=== PATIENT | female | born 1940 | race African-American/Black ===

== ENCOUNTER → 2017-07-02 | Outpatient (CLI) | payer MEDICARE, MEDICAID ==
[~2017-07-02] MED LIST: CALCIUM CARBONATE; DROSPIRENONE; DUO-KAPS1 CAP PO; FLEXERIL5 MG PO; HCTZ12.5TAB PO; IRON DROPS; LIDODERM PATCH TP; LORTAB 2.5/5001 TAB PO; LORTAB 5/500 501 TAB PO; LORTAB ELIX0.5 MG/ML PO; METHOCARBAMOL500 MG PO; NORCO PO; PERCOCET 5/321 UDTAB PO; PREDNISONE10 MG PO; REMERON 15M15 MG/TAB PO; REMERON SOLTAB15 MG PO; TYLENOL 325MG325 MG PO; TYLENOL 500MG500 MG PO; VALTREX PO; XARELTO10 MG PO; [UNRECOGNIZED DRUG - REMARK]
== END ==
LOC: MC.RAD 11:05
DX: Z12.31 Encounter for screening mammogram for malignant neoplasm of breast (principal)

== ENCOUNTER → 2017-10-29 | Outpatient (CLI) | payer MEDICARE, MEDICAID ==
[2017-10-29 16:42] LABS: BASO % 0.6 % (0.0-2.0); EOS # 0.1 (0.0-0.7); EOS % 0.8 % (0-4.0); GRAN % 47.8 % (42.2-75.2); HEMOGLOBIN 13.1 g/dl (12.5-16.0); LYMPH # 2.8 (1.2-3.4); LYMPH % 43.5 % (20.0-51.0); MEAN CELL VOLUME 92 fl (80.0-100.0); MEAN CORPUSCULAR HEMOGLOBIN 30 pg (27.0-31.0); MEAN CORPUSCULAR HGB CONC 33 g/dl (33.0-37.0); MEAN PLATELET VOLUME 10.4 fl (7.4-10.4); MONO # 0.5 (0.1-0.6); MONO % 7.1 % (1.7-9.3); PLATELET COUNT 284 K/mm3 (130-400); RED BLOOD COUNT 4.35 M/mm3 (4.10-5.30); WHITE BLOOD COUNT 6.3 K/mm3 (4.8-10.8)
[2017-10-29 16:55] LABS: ADJUSTED CALCIUM 9.2 mg/dL (8.4-10.2); ALBUMIN 4.5 gm/dL (3.5-5.0); BILIRUBIN,TOTAL 0.5 mg/dL (0.0-1.0); CALCIUM 9.6 mg/dL (8.4-10.2); CREATININE, serum 0.89 mg/dL (0.52-1.25); TOTAL PROTEIN 7.7 gm/dL (6.4-8.2)
[2017-10-29 17:02] LABS: PRE ALBUMIN 25.2 mg/dL (17.6-36.0)
[2017-10-29 17:25] LABS: TSH w REFLEX 0.957 uIU/mL (0.465-4.680)
== END ==
LOC: COL.LAB 09:59
PROVIDERS: Family Medicine
DX: R63.0 Anorexia (principal); R53.83 Other fatigue; R63.4 Abnormal weight loss

== ENCOUNTER 2017-11-11 12:12 | Observation (INO) | payer MEDICARE, MEDICAID ==
[~2017-11-11] VITALS: Ht 162.6 cm; Wt 45.3 kg
[2017-11-11] MEDS ORDERED: REMERON SOLTAB15 MG PO (12:21)
[2017-11-11 13:12] VITALS: BP 147/91; PULSE 62
[2017-11-11 13:46] LABS: BASO % 0.2 % (0.0-2.0); EOS % 0.8 % (0-4.0); GRAN # 2.5 (1.4-6.5); GRAN % 53.2 % (42.2-75.2); HEMATOCRIT 38.4 % (37.0-47.0); HEMOGLOBIN 12.6 g/dl (12.5-16.0); LYMPH # 1.8 (1.2-3.4); LYMPH % 37.6 % (20.0-51.0); MEAN CELL VOLUME 92 fl (80.0-100.0); MEAN CORPUSCULAR HEMOGLOBIN 30 pg (27.0-31.0); MEAN CORPUSCULAR HGB CONC 33 g/dl (33.0-37.0); MEAN PLATELET VOLUME 9.5 fl (7.4-10.4); MONO # 0.4 (0.1-0.6); MONO % 7.8 % (1.7-9.3); PLATELET COUNT 273 K/mm3 (130-400); RED BLOOD COUNT 4.18 M/mm3 (4.10-5.30); WHITE BLOOD COUNT 4.8 K/mm3 (4.8-10.8)
[2017-11-11 13:57] LABS: ADJUSTED CALCIUM 9.1 mg/dL (8.4-10.2); ALANINE AMINOTRANSFERASE 26 U/L (9-52); ALBUMIN 4.3 gm/dL (3.5-5.0); ALKALINE PHOSPHATASE 53 U/L (50-136); ANION GAP 8 mmol/L (7-16); BILIRUBIN,TOTAL 0.5 mg/dL (0.0-1.0); BLOOD UREA NITROGEN 12 mg/dL (7-17); CALCIUM 9.3 mg/dL (8.4-10.2); CARBON DIOXIDE 25 mmol/L (22-30); CHLORIDE 107 mmol/L (98-107); CREATININE, serum 0.78 mg/dL (0.52-1.25); GLUCOSE 90 mg/dL (74-106); POTASSIUM 3.8 mmol/L (3.4-5.0); SODIUM 141 mmol/L (137-145); TOTAL PROTEIN 7.3 gm/dL (6.4-8.2)
[2017-11-11 13:58] LABS: C-REACTIVE PROTEIN < 0.5 mg/dL (0.0-0.9)
[2017-11-11 14:06] LABS: TROPONIN-I < 0.012 ng/mL (0.000-0.034)
[2017-11-11 17:35] LABS: MAGNESIUM 1.8 mg/dL (1.6-2.3)
[2017-11-11 18:07] LABS: TSH w REFLEX 0.56 uIU/mL (0.465-4.680)
[2017-11-11 18:26] VITALS: BP 148/86; PULSE 56; TEMP 97.8
[2017-11-11 19:31] VITALS: BP 138/80; PULSE 51; TEMP 97.8
[2017-11-11 23:51] VITALS: BP 120/70; PULSE 51; TEMP 97.4
[2017-11-12 04:16] VITALS: BP 133/79; PULSE 58; TEMP 97.4
[2017-11-12 08:52] VITALS: BP 140/80; PULSE 57; TEMP 98.6
[2017-11-12 11:28] VITALS: BP 138/68; PULSE 57; TEMP 97.9
[2017-11-12] MEDS ORDERED: FLOXIN OTIC DROP5 ML OU (13:51)
== END 2017-11-12 14:20 | disposition home or self-care (01) ==
LOC: COL.ER 12:12 → MEDICAL 16:00
PROVIDERS: Emergency Medicine; Nurse Practitioner Family
DX: R42 Dizziness and giddiness (principal); R11.2 Nausea with vomiting, unspecified; H53.9 Unspecified visual disturbance; M19.90 Unspecified osteoarthritis, unspecified site; F32.9 Major depressive disorder, single episode, unspecified; F17.210 Nicotine dependence, cigarettes, uncomplicated; Z90.710 Acquired absence of both cervix and uterus; Z90.49 Acquired absence of other specified parts of digestive tract; Z83.3 Family history of diabetes mellitus
CPT/HCPCS: G0378; G8978-GP; G8979-GP; J2060; J2405; J7030

== ENCOUNTER → 2018-05-06 | Outpatient (CLI) | payer MEDICARE, MEDICAID ==
[~2018-05-06] MED LIST changes: +FLOXIN OTIC DROP5 ML OU
== END ==
LOC: COL.LAB 11:18
DX: S31.109A Unspecified open wound of abdominal wall, unspecified quadrant without penetration into peritoneal cavity, initial encounter (principal)

== ENCOUNTER → 2018-09-03 | Outpatient (CLI) | payer MEDICARE, MEDICAID ==
[2018-09-03 10:32] LABS: BASO % 0.6 % (0.0-2.0); EOS # 0.1 (0.0-0.7); GRAN # 2.3 (1.4-6.5); GRAN % 46.4 % (42.2-75.2); HEMATOCRIT 40.5 % (37.0-47.0); HEMOGLOBIN 13.4 g/dl (12.5-16.0); LYMPH # 2.1 (1.2-3.4); LYMPH % 41.9 % (20.0-51.0); MEAN CELL VOLUME 89 fl (80.0-100.0); MEAN CORPUSCULAR HEMOGLOBIN 30 pg (27.0-31.0); MEAN CORPUSCULAR HGB CONC 33 g/dl (33.0-37.0); MEAN PLATELET VOLUME 9.4 fl (7.4-10.4); MONO # 0.4 (0.1-0.6); MONO % 8.9 % (1.7-9.3); PLATELET COUNT 276 K/mm3 (130-400); RED BLOOD COUNT 4.54 M/mm3 (4.10-5.30); REDCELL DISTRIBUTION WIDTH-CV 15.5 % (11.5-14.5)
[2018-09-03 11:08] LABS: ERYTHROCYTE SEDIMENTATION RATE 14 mm/hr (0-30)
[2018-09-03 23:33] LABS: RHEUMATOID FACTOR-SCREEN <15 IU/mL (0-29)
== END ==
LOC: COL.LAB 09:40
PROVIDERS: Family Medicine
DX: M17.11 Unilateral primary osteoarthritis, right knee (principal); M11.261 Other chondrocalcinosis, right knee

== ENCOUNTER 2019-05-08 13:28 | Emergency (ER) | payer MEDICARE, MEDICAID ==
[~2019-05-08] VITALS: Ht 152.4 cm; Wt 47.7 kg
[2019-05-08 13:35] VITALS: TEMP 97.7
[2019-05-08 13:58] LABS: BASO % 0.4 % (0.0-2.0); EOS # 0.2 (0.0-0.7); EOS % 2.6 % (0-4.0); GRAN # 2.5 (1.4-6.5); GRAN % 34.9 % (42.2-75.2); HEMOGLOBIN 11.9 g/dl (12.5-16.0); LYMPH # 3.7 (1.2-3.4); LYMPH % 52.3 % (20.0-51.0); MEAN CELL VOLUME 92 fl (80.0-100.0); MEAN CORPUSCULAR HEMOGLOBIN 30 pg (27.0-31.0); MEAN CORPUSCULAR HGB CONC 32 g/dl (33.0-37.0); MONO # 0.7 (0.1-0.6); MONO % 9.7 % (1.7-9.3); PLATELET COUNT 345 K/mm3 (130-400); RED BLOOD COUNT 4.01 M/mm3 (4.10-5.30); REDCELL DISTRIBUTION WIDTH-CV 14.9 % (11.5-14.5)
[2019-05-08 13:59] LABS: ALANINE AMINOTRANSFERASE < 6 U/L (9-52); ALKALINE PHOSPHATASE 58 U/L (50-136); ANION GAP 12 mmol/L (7-16); AST,SGOT 33 U/L (15-37); BILIRUBIN,TOTAL 0.2 mg/dL (0.0-1.0); BLOOD UREA NITROGEN 11 mg/dL (7-17); CALCIUM 9.2 mg/dL (8.4-10.2); CARBON DIOXIDE 26 mmol/L (22-30); CHLORIDE 106 mmol/L (98-107); CREATININE, serum 0.78 (0.52-1.25); GLUCOSE 94 mg/dL (74-106); POTASSIUM 3.3 mmol/L (3.4-5.0); SODIUM 144 mmol/L (137-145); TOTAL PROTEIN 7.5 gm/dL (6.4-8.2)
[2019-05-08 14:02] LABS: HEMATOCRIT 36.8 % (37.0-47.0)
[2019-05-08 14:10] LABS: TROPONIN-I < 0.012 ng/mL (0.000-0.035)
[2019-05-08 15:53] LABS: COLLECTION METHOD CLEAN CATCH
[2019-05-08 16:05] LABS: MUCOUS Present /lpf; PH 5 (5-8); URINE APPEARANCE Hazy; URINE BACTERIA None Seen /hpf; URINE BILIRUBIN Negative (NEGATIVE); URINE BLOOD Negative (NEGATIVE); URINE COLOR Yellow; URINE GLUCOSE Negative (NEGATIVE); URINE KETONE Negative (NEGATIVE); URINE LEUKOCYTE ESTERASE 1+ (NEGATIVE); URINE NITRATE Negative (NEGATIVE); URINE PROTEIN(semi-quant) Negative (NEGATIVE); URINE UROBILINOGEN Negative (NEGATIVE)
[2019-05-08] MEDS ORDERED: MACROBID 1100 MG/CAP PO (16:32)
[2019-05-08 16:40] VITALS: BP 122/80; PULSE 78
== END 2019-05-08 16:44 | disposition home or self-care (01) ==
LOC: COL.ER 13:28
PROVIDERS: Emergency Medicine
DX: N39.0 Urinary tract infection, site not specified (principal); I10 Essential (primary) hypertension; R55 Syncope and collapse
CPT/HCPCS: J7030

== ENCOUNTER → 2019-12-28 | Emergency (ER) | payer MEDICARE, MEDICAID ==
[~2019-12-28] VITALS: Ht 162.6 cm; Wt 44.5 kg
[~2019-12-28] MED LIST changes: +CLEOCIN HCL300 MG PO; +MACROBID 1100 MG/CAP PO; +NORCO 325 MG-51 TAB PO; +NORVASC2.5 MG PO; +REMERON30 MG PO; +ULTRAM 50MG TAB50 MG PO
[2019-12-28 08:44] VITALS: BP 162/100; PULSE 83; TEMP 98.9
== END ==
LOC: COL.ER 08:32
DX: K04.7 Periapical abscess without sinus (principal); I10 Essential (primary) hypertension; F17.210 Nicotine dependence, cigarettes, uncomplicated
CPT/HCPCS: J1885

== ENCOUNTER 2020-04-10 14:30 | Emergency (ER) | payer MEDICARE, MEDICAID ==
[~2020-04-10] VITALS: Ht 160 cm; Wt 49.5 kg
[2020-04-10 14:37] VITALS: TEMP 98.4
[2020-04-10 15:17] LABS: BASO % 0.4 % (0.0-2.0); EOS # 0.1 (0.0-0.7); EOS % 0.9 % (0-4.0); GRAN # 4.4 (1.4-6.5); GRAN % 64.6 % (42.2-75.2); HEMOGLOBIN 11.5 g/dl (12.5-16.0); LYMPH # 1.8 (1.2-3.4); MEAN CELL VOLUME 92 fl (80.0-100.0); MEAN CORPUSCULAR HEMOGLOBIN 30 pg (27.0-31.0); MEAN CORPUSCULAR HGB CONC 32 g/dl (33.0-37.0); MEAN PLATELET VOLUME 9.9 fl (7.4-10.4); MONO # 0.5 (0.1-0.6); MONO % 7.8 % (1.7-9.3); PLATELET COUNT 264 K/mm3 (130-400); REDCELL DISTRIBUTION WIDTH-CV 15.3 % (11.5-14.5)
[2020-04-10 15:18] LABS: HEMATOCRIT 35.8 % (37.0-47.0)
[2020-04-10 15:57] LABS: ALANINE AMINOTRANSFERASE 19 U/L (4-34); ALBUMIN 4.2 gm/dL (3.5-5.0); ALKALINE PHOSPHATASE 59 U/L (50-136); ANION GAP 7 mmol/L (7-16); AST,SGOT 30 U/L (15-37); BILIRUBIN,TOTAL 0.4 mg/dL (0.0-1.0); BLOOD UREA NITROGEN 15 mg/dL (7-17); CALCIUM 9.4 mg/dL (8.4-10.2); CARBON DIOXIDE 25 mmol/L (22-30); CHLORIDE 106 mmol/L (98-107); CREATININE, serum 0.83 (0.52-1.25); GLUCOSE 89 mg/dL (74-106); SODIUM 138 mmol/L (137-145); TOTAL PROTEIN 7.5 gm/dL (6.4-8.2)
[2020-04-10 16:02] LABS: C-REACTIVE PROTEIN < 0.5 mg/dL (0.0-0.9)
[2020-04-10 16:11] LABS: TROPONIN-I < 0.012 ng/mL (0.000-0.035)
[2020-04-10] MEDS ORDERED: CLEOCIN HC150 MG/CAP PO (16:45)
[2020-04-10] MEDS ORDERED: LIPITOR 10MG10 MG PO (16:46)
[2020-04-10] MEDS ORDERED: VOLTAREN-XR100 MG PO (16:47)
[2020-04-10 17:08] LABS: COLLECTION METHOD CLEAN CATCH
[2020-04-10 17:20] VITALS: BP 118/71; PULSE 65
[2020-04-10 17:40] LABS: PH 6 (5-8); URINE APPEARANCE Clear; URINE COLOR Yellow; URINE PROTEIN(semi-quant) Negative (NEGATIVE)
[2020-04-10 17:41] LABS: MUCOUS Present /lpf; SQUAMOUS EPITHELIAL 0-2 /hpf; URINE BILIRUBIN Negative (NEGATIVE); URINE BLOOD Negative (NEGATIVE); URINE GLUCOSE Negative (NEGATIVE); URINE KETONE Negative (NEGATIVE); URINE LEUKOCYTE ESTERASE Negative (NEGATIVE); URINE NITRATE Negative (NEGATIVE); URINE UROBILINOGEN Negative (NEGATIVE)
[2020-04-10 17:42] LABS: URINE BACTERIA None Seen /hpf
== END 2020-04-10 17:33 | disposition home or self-care (01) ==
LOC: COL.ER 14:30
PROVIDERS: Family Medicine
DX: R55 Syncope and collapse (principal); E86.0 Dehydration; I10 Essential (primary) hypertension
CPT/HCPCS: J2405; J7120

== ENCOUNTER 2020-08-24 09:02 | Outpatient (RCR) | payer MEDICARE, MEDICAID ==
[~2020-08-24 09:02] MED LIST changes: +CLEOCIN HC150 MG/CAP PO; +LIPITOR 10MG10 MG PO; +VOLTAREN-XR100 MG PO
== END 2020-08-24 09:28 | disposition other institution (70) ==
LOC: WSC 09:02
DX: M54.2 Cervicalgia (principal)

== ENCOUNTER 2021-01-23 14:34 | Emergency (ER) | payer MEDICARE, MEDICAID ==
[~2021-01-23] VITALS: Ht 152.4 cm; Wt 43.2 kg
[2021-01-23 14:47] VITALS: TEMP 98.4
[2021-01-23 15:17] LABS: BASO % 0.4 % (0.0-2.0); EOS % 0.4 % (0-4.0); GRAN # 6.7 (1.4-6.5); GRAN % 63.1 % (42.2-75.2); HEMOGLOBIN 12.3 g/dl (12.5-16.0); LYMPH # 2.7 (1.2-3.4); LYMPH % 25.7 % (20.0-51.0); MEAN CELL VOLUME 87 fl (80.0-100.0); MEAN CORPUSCULAR HEMOGLOBIN 29 pg (27.0-31.0); MEAN CORPUSCULAR HGB CONC 34 g/dl (33.0-37.0); MEAN PLATELET VOLUME 9.1 fl (7.4-10.4); MONO # 1.1 (0.1-0.6); MONO % 10.1 % (1.7-9.3); PLATELET COUNT 321 K/mm3 (130-400); RED BLOOD COUNT 4.18 M/mm3 (4.10-5.30); REDCELL DISTRIBUTION WIDTH-CV 15.2 % (11.5-14.5)
[2021-01-23 15:18] LABS: HEMATOCRIT 36.3 % (37.0-47.0)
[2021-01-23 15:30] LABS: ALBUMIN 4.4 gm/dL (3.5-5.0); BILIRUBIN,TOTAL 0.7 mg/dL (0.0-1.0); C-REACTIVE PROTEIN 7.1 mg/dL (0.0-0.9); CALCIUM 9.4 mg/dL (8.4-10.2); CREATININE, serum 0.72 (0.52-1.25); POTASSIUM 3.5 mmol/L (3.4-5.0)
[2021-01-23 17:00] LABS: COLLECTION METHOD CLEAN CATCH
[2021-01-23 17:07] LABS: MUCOUS Present /lpf; PH 5 (5-8); SQUAMOUS EPITHELIAL 0-2 /hpf; URINE APPEARANCE Clear; URINE BACTERIA None Seen /hpf; URINE BILIRUBIN Negative (NEGATIVE); URINE BLOOD Negative (NEGATIVE); URINE COLOR Yellow; URINE GLUCOSE Negative (NEGATIVE); URINE KETONE Trace (NEGATIVE); URINE LEUKOCYTE ESTERASE Negative (NEGATIVE); URINE NITRATE Negative (NEGATIVE); URINE PROTEIN(semi-quant) 1+ (NEGATIVE); URINE UROBILINOGEN Negative (NEGATIVE)
[2021-01-23] MEDS ORDERED: OXYCODONE H5 MG/5 ML PO (18:17)
[2021-01-23 19:12] VITALS: BP 114/70; PULSE 68
== END 2021-01-23 19:12 | disposition home or self-care (01) ==
LOC: COL.ER 14:34
PROVIDERS: Nurse Practitioner
DX: M54.5 Low back pain (principal); F17.210 Nicotine dependence, cigarettes, uncomplicated; Z88.6 Allergy status to analgesic agent; Z88.1 Allergy status to other antibiotic agents; Z88.8 Allergy status to other drugs, medicaments and biological substances
CPT/HCPCS: J3010; J3360; Q9967

== ENCOUNTER 2021-03-13 19:34 | Observation (INO) | payer MEDICARE, MEDICAID ==
[~2021-03-13] VITALS: Ht 160 cm; Wt 49.3 kg
[~2021-03-13 19:34] MED LIST changes: +OXYCODONE H5 MG/5 ML PO
[2021-03-13 19:53] LABS: HEMOGLOBIN 11.6 g/dl (12.5-16.0); MEAN CELL VOLUME 87 fl (80.0-100.0); MEAN CORPUSCULAR HEMOGLOBIN 28 pg (27.0-31.0); MEAN CORPUSCULAR HGB CONC 32 g/dl (33.0-37.0); MEAN PLATELET VOLUME 8.8 fl (7.4-10.4); PLATELET COUNT 524 K/mm3 (130-400); RED BLOOD COUNT 4.14 M/mm3 (4.10-5.30); REDCELL DISTRIBUTION WIDTH-CV 17.7 % (11.5-14.5)
[2021-03-13 20:05] LABS: ALANINE AMINOTRANSFERASE 23 U/L (4-34); ALBUMIN 4.6 gm/dL (3.5-5.0); ALKALINE PHOSPHATASE 91 U/L (50-136); ANION GAP 16 mmol/L (7-16); AST,SGOT 32 U/L (15-37); BILIRUBIN,TOTAL 0.5 mg/dL (0.0-1.0); BLOOD UREA NITROGEN 12 mg/dL (7-17); C-REACTIVE PROTEIN 5.9 mg/dL (0.0-0.9); CARBON DIOXIDE 19 mmol/L (22-30); CHLORIDE 106 mmol/L (98-107); CREATINE KINASE 42 U/L (30-135); GLUCOSE 124 mg/dL (74-106); LIPASE 190 U/L (23-300); POTASSIUM 3.6 mmol/L (3.4-5.0); SODIUM 141 mmol/L (137-145); TOTAL PROTEIN 9.3 gm/dL (6.4-8.2)
[2021-03-13 20:06] LABS: HEMATOCRIT 35.8 % (37.0-47.0)
[2021-03-13 20:15] LABS: TROPONIN-I < 0.012 ng/mL (0.000-0.035)
[2021-03-13 20:17] LABS: INR 1.2 (0.8-3.0); PROTHROMBIN TIME 13.6 SECONDS (9.7-12.8)
[2021-03-13 20:29] LABS: LYMPHOCYTE 45 % (20.0-51.0); NEUTROPHILS 48 % (42.0-75.2)
[2021-03-13 20:31] LABS: ANISOCYTOSIS 1+; HYPOCHROMIA 1+
[2021-03-13] MEDS ORDERED: PRILOSEC 20MG20 MG PO (22:19)
[2021-03-13 22:22] LABS: COLLECTION METHOD CLEAN CATCH
[2021-03-13 22:28] LABS: MUCOUS Present /lpf; PH 6 (5-8); SQUAMOUS EPITHELIAL 0-2 /hpf; URINE APPEARANCE Clear; URINE BACTERIA None Seen /hpf; URINE BILIRUBIN Negative (NEGATIVE); URINE BLOOD Negative (NEGATIVE); URINE COLOR Straw; URINE GLUCOSE Negative (NEGATIVE); URINE KETONE Negative (NEGATIVE); URINE LEUKOCYTE ESTERASE Negative (NEGATIVE); URINE NITRATE Negative (NEGATIVE); URINE PROTEIN(semi-quant) Negative (NEGATIVE); URINE RBC 0-2 /hpf; URINE UROBILINOGEN Negative (NEGATIVE)
--- NOTE | 2021-03-14 00:10 | NUR ---
To room 316 via stretcher from ED. Assessment complete. VS stable. A&Ox3-very uncooperative. States "I dont want to be here. How long am I going to be here. Just leave me alone." Very difficult to get questions answered. Denies nausea/shortness of breath. States her pain is "fine" now. Unable to answer med rec questions. Requests call be made to family to get information. Attempt made but no answer and mail box full. Plan of care discussed for this shift to include HS meds/pain control/NPO at midnight. Verbalizes understanding/denies questions/concerns. Call light in reach. Will monitor.
[2021-03-14] MEDS ORDERED: AMOXICILLIN 50500 MG PO (00:33)
[2021-03-14] MEDS ORDERED: MEGACE20 MG PO (00:34)
[2021-03-14] MEDS ORDERED: BIAXIN 500MG T500 MG PO (00:34)
[2021-03-14 00:39] VITALS: BP 133/82; PULSE 90; TEMP 98.2
[2021-03-14 03:17] VITALS: BP 129/66; PULSE 84; TEMP 98.2
--- NOTE | 2021-03-14 06:27 | NUR ---
Dr. Hu notified of GI consult for patient.
--- NOTE | 2021-03-14 07:24 | NUR ---
Pt up to bathroom with standby assist, denies further needs at this time. Call light in reach. Bed alarm on.
[2021-03-14 07:29] LABS: BASO # 0.1 (0.0-0.2); BASO % 0.5 % (0.0-2.0); EOS # 0.1 (0.0-0.7); EOS % 0.7 % (0-4.0); GRAN # 5.3 (1.4-6.5); GRAN % 56.7 % (42.2-75.2); LYMPH # 2.9 (1.2-3.4); LYMPH % 30.7 % (20.0-51.0); MEAN CELL VOLUME 85 fl (80.0-100.0); MEAN CORPUSCULAR HGB CONC 33 g/dl (33.0-37.0); MEAN PLATELET VOLUME 8.7 fl (7.4-10.4); MONO % 10.9 % (1.7-9.3); RED BLOOD COUNT 3.48 M/mm3 (4.10-5.30); REDCELL DISTRIBUTION WIDTH-CV 17.2 % (11.5-14.5)
[2021-03-14 07:31] LABS: HEMATOCRIT 29.5 % (37.0-47.0); HEMOGLOBIN 9.8 g/dl (12.5-16.0); MEAN CORPUSCULAR HEMOGLOBIN 28 pg (27.0-31.0); PLATELET COUNT 420 K/mm3 (130-400)
[2021-03-14 07:38] LABS: ANION GAP 9 mmol/L (7-16); BLOOD UREA NITROGEN 9 mg/dL (7-17); CALCIUM 8.8 mg/dL (8.4-10.2); CARBON DIOXIDE 22 mmol/L (22-30); CHLORIDE 109 mmol/L (98-107); CREATININE, serum 0.62 (0.52-1.25); GLUCOSE 92 mg/dL (74-106); POTASSIUM 3.9 mmol/L (3.4-5.0); SODIUM 139 mmol/L (137-145)
[2021-03-14 07:39] LABS: TROPONIN-I < 0.012 ng/mL (0.000-0.035)
[2021-03-14 08:09] VITALS: BP 125/68; PULSE 80; TEMP 98
[2021-03-14 12:04] VITALS: BP 144/74; PULSE 81; TEMP 98
--- NOTE | 2021-03-14 13:15 | NUR ---
First visit from the traffic supervisor. No needs right now.
--- NOTE | 2021-03-14 13:25 | NUR ---
JACQUELINE met with the patient to discuss discharge plan. The patient appeared very upset and states that she had not been able to eat yet. She cussed during intake and expressed her frustrations with having to wait to use the restroom. She states that instead of waiting for assistance she got up to use the restroom and fell coming back from it. JACQUELINE provided support and notified her RN and the clinical team of this. The patient lives in [place] with her daughter, Levi. She reports independence with ADLs and does not have any DME. The patient's PCP is Dr. Javon Terrell and she receives her medications from [facility] [place]. She reports no difficulties obtaining her meds. The patient does not have a DPOA-HC, but she states that she thinks she has one completed and that it designates her daughter, Bobo Morton (ph#[phone]). SW attempted to establish next of kin. The patient states that she has eight children, but did not want to give SW their names. The patient plans to return home with her daughter upon discharge. SW discussed home health and it's benefits. The patient declined home health. JACQUELINE then contacted the patient's daughter, Bobo, to review the above. Bobo confirms that the patient lives with Levi. She states that her and her brother also check in on the patient frequently. Bobo reports that she is unaware if the patient has a DPOA-HC completed. She reports that the patient has six children and adopted a a couple of children: herself, Elsie Marcelino Levi, Angy Strange, Rossi Otero, David Allan, Guille Otero. 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 SW asked the PA for PT/OT to be ordered. SW to continue to follow. *Discharge plan: home, awaiting therapy recs*
--- NOTE | 2021-03-14 15:30 | NUR ---
Discharge instructions reviewed with pt regarding medication changes and follow-up appointments. Pt verbalizes understanding, discharged home, escorted out of facility via WC accompanied by RETURN TO FACTORY CLERK and pt's son.
--- NOTE | 2021-03-14 15:46 | NUR ---
Therapy recommends home with family support. The patient is to discharge back home with her daughter today, 03/14. No additional needs at this time.
== END 2021-03-14 15:30 | disposition home or self-care (01) ==
LOC: COL.ER 19:34 → MEDICAL 21:44
PROVIDERS: Emergency Medicine; Student in an Organized Health Care Education/Training Program; ADMIT Hospitalist
DX: R07.9 Chest pain, unspecified (principal); E78.5 Hyperlipidemia, unspecified; I10 Essential (primary) hypertension; G89.29 Other chronic pain; B96.81 Helicobacter pylori [H. pylori] as the cause of diseases classified elsewhere; R13.10 Dysphagia, unspecified; M79.10 Myalgia, unspecified site; M54.9 Dorsalgia, unspecified; F17.210 Nicotine dependence, cigarettes, uncomplicated; Z90.710 Acquired absence of both cervix and uterus; Z90.89 Acquired absence of other organs; Z90.49 Acquired absence of other specified parts of digestive tract; Z98.51 Tubal ligation status; Z79.891 Long term (current) use of opiate analgesic; Z79.899 Other long term (current) drug therapy; Z88.5 Allergy status to narcotic agent; Z88.6 Allergy status to analgesic agent; Z88.8 Allergy status to other drugs, medicaments and biological substances
CPT/HCPCS: 99223-AI; C9113; G0378; J1650; J1885; J2060; J2405; J3010; J7030; Q9967

== ENCOUNTER 2021-08-23 19:51 | Emergency (ER) | payer MEDICARE, MEDICAID ==
[~2021-08-23] VITALS: Ht 160 cm; Wt 59.5 kg
[~2021-08-23 19:51] MED LIST changes: +AMOXICILLIN 50500 MG PO; +BIAXIN 500MG T500 MG PO; +MEGACE20 MG PO; +PRILOSEC 20MG20 MG PO
[2021-08-23 19:54] VITALS: TEMP 97.6
[2021-08-23 21:02] LABS: BASO # 0.1 K/mm3 (0.0-0.2); BASO % 0.6 % (0.0-2.0); EOS # 0.1 K/mm3 (0.0-0.7); EOS % 1.2 % (0-4.0); GRAN # 5.9 K/mm3 (1.4-6.5); GRAN % 66.8 % (42.2-75.2); HEMATOCRIT 38.4 % (37.0-47.0); HEMOGLOBIN 12.6 g/dl (12.5-16.0); LYMPH # 2.1 K/mm3 (1.2-3.4); LYMPH % 23.2 % (20.0-51.0); MEAN CELL VOLUME 92 fl (80.0-100.0); MEAN CORPUSCULAR HEMOGLOBIN 30 pg (27.0-31.0); MEAN CORPUSCULAR HGB CONC 33 g/dl (33.0-37.0); MEAN PLATELET VOLUME 9.2 fl (7.4-10.4); MONO # 0.7 K/mm3 (0.1-0.6); MONO % 7.6 % (1.7-9.3); PLATELET COUNT 282 K/mm3 (130-400); RED BLOOD COUNT 4.17 M/mm3 (4.10-5.30); REDCELL DISTRIBUTION WIDTH-CV 15.6 % (11.5-14.5)
[2021-08-23 21:08] LABS: INR 1.1 (0.8-3.0); PROTHROMBIN TIME 12.2 SECONDS (9.7-12.8)
[2021-08-23 21:29] LABS: COLLECTION METHOD CLEAN CATCH
[2021-08-23 21:29] LABS: ALANINE AMINOTRANSFERASE 13 U/L (0-55); ALBUMIN 3.4 gm/dL (3.4-4.8); ALKALINE PHOSPHATASE 59 U/L (0-750); ANION GAP 10 mmol/L (7-16); AST,SGOT 21 U/L (5-34); BILIRUBIN,TOTAL 0.3 mg/dL (0.2-1.2); BLOOD UREA NITROGEN 11 mg/dL (10-20); CALCIUM 8.1 mg/dL (8.4-10.2); CARBON DIOXIDE 21 mmol/L (23-31); CHLORIDE 110 mmol/L (98-107); CREATINE KINASE 43 U/L (29-168); CREATININE, serum 1.02 mg/dL (0.57-1.11); GLUCOSE 167 mg/dL (70-99); POTASSIUM 3.8 mmol/L (3.5-4.5); SODIUM 141 mmol/L (136-145); TOTAL PROTEIN 6.6 gm/dL (6.2-8.1)
[2021-08-23 21:35] LABS: PH 7 (5-8); SQUAMOUS EPITHELIAL 0-2 /hpf; URINE APPEARANCE Clear; URINE BACTERIA None Seen /hpf; URINE BILIRUBIN Negative (NEGATIVE); URINE BLOOD Negative (NEGATIVE); URINE COLOR Colorless; URINE GLUCOSE 1+ (NEGATIVE); URINE KETONE Negative (NEGATIVE); URINE LEUKOCYTE ESTERASE Negative (NEGATIVE); URINE NITRATE Negative (NEGATIVE); URINE PROTEIN(semi-quant) Negative (NEGATIVE); URINE RBC None Seen /hpf; URINE UROBILINOGEN Negative (NEGATIVE)
[2021-08-23 21:36] LABS: TROPONIN-I < 0.010 ng/mL (0.00-0.033)
[2021-08-23 22:17] VITALS: BP 137/82; PULSE 91
== END 2021-08-23 22:20 | disposition home or self-care (01) ==
LOC: COL.ER 19:51
PROVIDERS: Emergency Medicine
DX: I95.9 Hypotension, unspecified (principal); R42 Dizziness and giddiness; I10 Essential (primary) hypertension; Z79.899 Other long term (current) drug therapy
CPT/HCPCS: J7030

== ENCOUNTER 2022-01-28 13:51 | Emergency (ER) | payer MEDICARE, MEDICAID ==
[~2022-01-28] VITALS: Ht 160 cm; Wt 60.9 kg
[2022-01-28 14:36] VITALS: BP 184/101; TEMP 98.3
[2022-01-28 16:48] VITALS: PULSE 89
== END 2022-01-28 16:48 | disposition home or self-care (01) ==
LOC: COL.ER 13:51
DX: M19.022 Primary osteoarthritis, left elbow (principal); F17.210 Nicotine dependence, cigarettes, uncomplicated; Z88.6 Allergy status to analgesic agent

== ENCOUNTER → 2024-01-15 | Outpatient (RCR) | payer MEDICARE, MEDICAID | END | disposition home or self-care (01) | LOC: WSPT | DX: M17.0 Bilateral primary osteoarthritis of knee (principal); M35.3 Polymyalgia rheumatica; G25.81 Restless legs syndrome ==

== ENCOUNTER 2024-02-11 15:45 | Outpatient (RCR) | payer MEDICARE, MEDICAID | END 2024-02-15 | disposition home or self-care (01) | LOC: WSPT | DX: M17.0 Bilateral primary osteoarthritis of knee (principal); G25.81 Restless legs syndrome; M35.3 Polymyalgia rheumatica ==